=== PATIENT | male | born 1940 | race Caucasian/White ===

== ENCOUNTER 2017-03-02 14:24 | Observation (INO) | payer MEDICARE ==
[~2017-03-02] VITALS: Ht 157.5 cm; Wt 39.7 kg
[~2017-03-02 14:24] MED LIST: ALPRAZOLAM0.5 MG PO; ALTACE2.5 MG PO; CLOBETASOL EMO100 GM TP; FISH OIL 1,0001 EACH PO; GLUCERNA237 ML PO; HUMALOG100 UNIT/3 SQ; LEVEMIR100 UNIT/1 SQ; LOVASTATIN40 MG PO; MEGACE SUSP40 MG/M1 PO; NORCO 5-325 TA1 EACH PO; NORVASC 5 MG TAB5 MG PO; PANTOPRAZOLE SO40 MG PO; VITAMIN D 40400 UNIT PO; ZOFRAN4 MG PO
[2017-03-02 15:02] LABS: HEMOGLOBIN 12.6 gm/dl (14.0-17.5); RED BLOOD COUNT 4.57 M/UL (4.20-5.50); WHITE BLOOD COUNT 12.2 K/UL (4.5-11.0)
[2017-03-02 15:32] LABS: BUN/CREATININE RATIO 15 (0-10)
[2017-03-02] MEDS ORDERED: HUMALOG100 UNIT/1 SQ ×3 (21:50→21:52)
[2017-03-02] MEDS ORDERED: NORVASC 5 MG TAB5 MG PO (21:50)
[2017-03-02] MEDS ORDERED: LOVASTATIN40 MG PO (21:53)
[2017-03-03 04:54] LABS: HEMOGLOBIN 9.8 gm/dl (14.0-17.5); RED BLOOD COUNT 3.68 M/UL (4.20-5.50); WHITE BLOOD COUNT 6.8 K/UL (4.5-11.0)
[2017-03-03 05:14] LABS: BUN/CREATININE RATIO 14 (0-10)
[2017-03-03] MEDS ORDERED: MEGACE 400400 MG/10 PO (16:24)
[2017-03-03] MEDS ORDERED: ZOFRAN 4 MG TAB4 MG PO (16:25)
[2017-03-03] MEDS ORDERED: REMERON15 MG PO (16:29)
== END 2017-03-03 18:07 | disposition home or self-care (01) ==
LOC: ER1 14:24 → M/S 20:00 → ZEROF 20:00 → M/S 21:57
PROVIDERS: Family Medicine; ADMIT Internal Medicine
DX: C25.9 Malignant neoplasm of pancreas, unspecified (principal); C78.6 Secondary malignant neoplasm of retroperitoneum and peritoneum; R59.0 Localized enlarged lymph nodes; R18.8 Other ascites; I10 Essential (primary) hypertension; E11.65 Type 2 diabetes mellitus with hyperglycemia; E78.5 Hyperlipidemia, unspecified; Z87.891 Personal history of nicotine dependence; Z79.899 Other long term (current) drug therapy; Z98.890 Other specified postprocedural states
CPT/HCPCS: 36415; 36600; 71010; 80053; 80061; 81001; 82009; 82550; 82553; 82803; 82962; 83605; 83690; 83735; 83874; 84100; 84439; 84443; 84484; 85025; 85379; 86140; 93005; 96361; 96372; 96374; 96375; 96376; 99285; G0378; J1335; J1650; J1815; J2270; J2405; J7030; J7050; Q9963